=== PATIENT | male | born 1950 | race Caucasian/White ===

== ENCOUNTER 2016-11-29 08:29 | Emergency (ER) | payer MEDICARE ==
[~2016-11-29] VITALS: Ht 190.5 cm; Wt 88.0 kg
[2016-11-29 08:34] VITALS: BP 177/81; PULSE 84; RESP 24; TEMP 98.3; O2SAT 99
[2016-11-29] MEDS ORDERED: HYDROmorphone HCL PF 1 MG/ML VIAL IM ONE (09:00)
[2016-11-29] MEDS ORDERED: ONDANSETRON ODT 4 MG TAB PO ONE (09:00)
[2016-11-29] MEDS ORDERED: KETOROLAC TROMETHAMINE 60 MG/2 ML (IM) VIAL IM ONE (09:00)
[2016-11-29] MEDS ORDERED: OXYC-395 PO (09:04)
--- NOTE | 2016-11-29 09:18 | PD ---
HPI Chief Complaint: Back/ Neck Pain or Injury Time Seen by Provider: 08:50 Travel History International Travel<30 days: No Contact w/Intl Traveler<30days: No Traveled to known affect area: No History of Present Illness HPI 66-year-old male with acute on chronic back pain. Worsening symptoms for past week. Multiple surgeries. Recently moved to town is out of medications. Pain is mostly in the left side, raise on the left leg. No bowel or bladder symptoms. Recent MRI. Has appointment with new primary physician tomorrow. History Past Medical History Narrative Medical Liver transplant 2004, Prograf Diabetes History of hepatitis C, "cured" History of RSD Tetanus Vaccination: > 5 Years Influenza Vaccination: No Social History Alcohol Use: No Tobacco Use: Yes (1 ppd ) Allergies-Medications (Allergen,Severity, Reaction): Coded Allergies: Iodinated Contrast- Oral and IV Dye (Verified Allergy, Severe, Anaphylaxis , 11/29/16) amoxicillin (Verified Allergy, Severe, Hives, 11/29/16) clavulanic acid (Verified Allergy, Severe, Hives, 11/29/16) Reported Meds & Prescriptions Reported Meds & Active Scripts Active Oxycodone (Oxycodone HCl) 10 Mg Tab 10 Mg PO Q8HR Review of Systems Except as stated in HPI: all other systems reviewed are Neg Physical Exam Narrative GENERAL: Well-developed, well-nourished, uncomfortable, nontoxic. SKIN: Warm and dry. CARDIOVASCULAR: Warm and well perfused. RESPIRATORY: Normal rate and effort. MUSCULOSKELETAL: Normal appearance of back and bilateral lower extremities. No ecchymosis, swelling, bruising. No rashes. Normal muscle bulk and tone. NEUROLOGICAL: Strength full 5/5 and equal in bilateral lower extremities in proximal and distal muscle groups. 5/5 in large toe flexion and extension. Sensation is intact to light touch throughout. Able to walk but hunched over holding his back. No obvious gait instability. PSYCHIATRIC: Appropriate mood and affect; insight and judgment normal. Data Data Last Documented VS Vital Signs Date Time Temp Pulse Resp B/P (MAP) Pulse Ox O2 Delivery O2 Flow Rate FiO2 11/29/16 08:54 16 11/29/16 08:34 98.3 84 177/81 (113) 99 Orders Orders Ketorolac Inj (Toradol Inj) (11/29/16 09:00) Hydromorphone Pf Inj (Dilaudid Pf Inj) (11/29/16 09:00) Ondansetron Odt (Zofran Odt) (11/29/16 09:00) MDM Medical Decision Making Medical Screen Exam Complete: Yes Emergency Medical Condition: Yes Differential Diagnosis To chronic back pain, strain or sprain, disc disease, AAA, other Narrative Course Follow-up with your primary doctor in the next 2-4 days. Return to the emergency department for any new or worsening symptoms. Diagnosis Primary Impression: Acute exacerbation of chronic low back pain Additional Instructions: Follow-up with her primary doctor tomorrow. Return to the emergency department for any new or worsening symptoms. Med/Other Pt SpecificInfo: Prescription(s) given Scripts Oxycodone (Oxycodone) 10 Mg Tab 10 MG PO Q8HR for Pain Management, #6 TAB 0 Refills Prov: Jose Dawson MD 11/29/16 Disposition: 01 DISCHARGE HOME Condition: Stable Jose Dawson MD Nov 29, 2016 09:18
[2016-11-29] MEDS ORDERED: GABA400C5 PO (09:21)
[2016-11-29] MEDS ORDERED: TACR1 PO (09:21)
[2016-11-29] MEDS ORDERED: TACR0.5 PO (09:21)
[2016-11-29] MEDS ORDERED: GLIP10TA6 PO (09:21)
[2016-11-29] MEDS ORDERED: LYRI150C PO (09:21)
[2016-11-29 09:49] VITALS: RESP 16
[2016-11-29 09:50] VITALS: BP 165/71
== END 2016-11-29 09:52 | disposition home or self-care (01) ==
LOC: PHED 08:29
DX: M54.5 Low back pain (principal); E11.9 Type 2 diabetes mellitus without complications; Z94.4 Liver transplant status; Z79.899 Other long term (current) drug therapy; F17.200 Nicotine dependence, unspecified, uncomplicated; G89.29 Other chronic pain
CPT/HCPCS: 96372; 99284; J1170; J1885